=== PATIENT | female | born 1960 | race Caucasian/White ===

== ENCOUNTER 2025-05-07 10:14 | Outpatient (CLI) | payer MEDICARE, SELFPAY ==
--- NOTE | 2025-05-07 10:20 | MM_ITS ---
WS: [id number] Bilateral screening 3D tomosynthesis digital mammogram, 05/07/2025 10:25 AM Clinical Data: SCREENING Comparison: 06/04/2019, 04/03/2018, 02/15/2017, 11/04/2014, 09/03/2013, 08/07/2012, 07/05/2011, 01/13/2010, 09/04/2008, 08/10/2006, 12/18/2004. Findings: No spiculated masses or clustered calcifications are seen. There are no secondary signs of carcinoma. MM/MM [facility] tomosynthesis [id number] Impression: Negative bilateral mammogram unchanged. Recommend annual screening mammograms. BIRADS: 1 - Negative. FOLLOW UP: 1 Year Follow-up DENSITY: There are scattered areas of fibroglandular density. The CAD tool checker was used
== END 2025-05-07 10:15 | disposition home or self-care (01) ==
LOC: MOBLMAM 10:17
PROVIDERS: PCP Family Medicine; Visit Provider Family Medicine
DX: Z12.31 Encounter for screening mammogram for malignant neoplasm of breast (principal); R92.323 Mammographic fibroglandular density, bilateral breasts
CPT/HCPCS: 77063; 77067